=== PATIENT | female | born 1980 | race Caucasian/White ===

== ENCOUNTER 2016-03-09 15:24 | Emergency (ER) | payer OTHER ==
[~2016-03-09] VITALS: Ht 170.2 cm; Wt 108.9 kg
--- NOTE | 2016-03-09 16:17 | ED GI/GU/ABDOMINAL COMPLAINT ---
History of Present Illness General Chief Complaint: Abdominal Pain/Flank Pain Stated Complaint: ABD PAIN Source: patient Exam Limitations: no limitations Vital Signs & Intake/Output Vital Signs & Intake/Output Vital Signs Date Time Temp Pulse Resp B/P Pulse O2 O2 Flow FiO2 Ox Delivery Rate 03/09 1715 98.7 75 18 118/68 97 03/09 1528 97.8 98 20 135/83 98 Room Air Allergies Coded Allergies: No Known Allergies (03/09/16) Reconcile Medications Norethindrone-E.estradiol-Iron (Blisovi Fe 1-20 Tablet) 1 MG-20 MCG (21)/75 MG ( 7) TABLET 1 TAB PO DAILY CONTROL (Reported) Triage Note: TRIAGE: PT TO ER C/C LLQ ABD PAIN, ONSET 2 AM, INTERMITTENT INITIALLY BUT NOW CONSTANT SINCE 07:00. +N/-V/+D. LNBM ?FRIDAY. -URINARY S/S. REPORTS BLOOD IN STOOL (DIARRHEA) 30 MIN WALLPAPER CLEANER. BLOOD WAS BRIGHT RED IN COLOR, -CLOTS. REPORTS ALSO HAD COLD SWEATS WITH ONSET OF PAIN AT 02:00. Triage Nurses Notes Reviewed? yes ? n Is pt currently ? No HPI: 35-year-old female with sudden onset of diarrhea left lower quadrant pain that started at 2 AM this morning. She went to dinner last night, had steak and cramps, no Sick, she had sudden onset diarrhea multiple episodes and severe left lower quadrant abdominal pain. This eventually subsided and she was able to sleep through the night and woke up again at 7:30 with same symptoms, severe left lower quadrant abdominal pain which was nonradiating and diarrhea, large amount. She had mild nausea without vomiting. She had symptoms again a few hours ago and noted that she had a small amount of bright with blood in toilet after having a loose bowel movement again. This concerned her and she came in for evaluation. She has consistent 7 out of 10 left lower quadrant abdominal pain. No previous abdominal surgeries. No treatment thus far. No modifying factors. Symptoms have been intermittent, no bleeding when not going to the bathroom. No fever. Past History Travel History Traveled to [place] past 21 day No Medical History Any Pertinent Medical History? none Neurological: NONE EENT: NONE Cardiovascular: NONE Respiratory: NONE Gastrointestinal: NONE Hepatic: NONE Renal: NONE Musculoskeletal: NONE Psychiatric: NONE Endocrine: NONE Blood Disorders: NONE Cancer(s): NONE TEST ADMINISTRATOR/Reproductive: NONE Surgical History Surgical History: none Psychosocial History What is your primary language Irish Tobacco Use: Never used ETOH Use: occasional use Illicit Drug Use: denies illicit drug use Family History Hx Contributory? No Review of Systems Review of Systems Constitutional: Reports: see HPI. EENTM: Reports: no symptoms. Respiratory: Reports: no symptoms. Cardiovascular: Reports: no symptoms. GI: Reports: see HPI. Genitourinary: Reports: no symptoms. Musculoskeletal: Reports: no symptoms. Skin: Reports: no symptoms. Neurological/Psychological: Reports: no symptoms. Hematologic/Endocrine: Reports: no symptoms. Immunologic/Allergic: Reports: no symptoms. All Other Systems: Reviewed and Negative Physical Exam Physical Exam Gastrointestinal: normal bowel sounds, soft, non-tender, no organomegaly Comments: Well-developed well-nourished no apparent distress. HEENT: Atraumatic, extraocular motion intact Neck: Supple, no lymphadenopathy Back: Nontender Respiratory: No respiratory distress clear to auscultation bilateral. Heart: Regular rate and rhythm no murmur Extremities: No edema, full range of motion Neuro: Alert and oriented x3 Psych: Mood affect normal, normal memory normal judgment. Skin: Warm and dry, no rash on exposed skin Core Measures ACS in differential dx? No Severe Sepsis Present: No Septic Shock Present: No Progress Differential Diagnosis: AAA, AMI, appendicitis, biliary colic, bowel obstruction , colon cancer, cholecystitis, diverticulitis, ectopic , endometritis, esophageal varices, gastritis, hepatitis, hernia, hemorrhoids, ischemic bowel, inflamm bowel dis, intrauterine , kidney stone, Anika-Sven tear, ovarian cyst, ovarian torsion, pancreatitis, PID/cervicitis, peptic ulcer, PUD/ GERD, perforated viscous, SBO, threatened AB, UTI/pyelo Plan of Care: Orders Procedure Date/time Status Saline Lock 03/09 1614 Active URINE DRUG SCREEN FOR ER ONLY 03/09 1604 Complete URINALYSIS 03/09 1604 Complete LIPASE 03/09 1604 Complete HUMAN BETA HCG SCREEN 03/09 1604 Complete ETHANOL 03/09 1604 Complete COMPREHENSIVE METABOLIC PANEL 03/09 1604 Complete CBC WITHOUT DIFFERENTIAL 03/09 1604 Complete AMYLASE 03/09 1604 Complete Laboratory Tests 03/09/16 1909: Urine Opiates Screen < 100.00, Methadone Screen < 40, Barbiturate Screen < 60, Ur Phencyclidine Scrn < 6.00, Amphetamines Screen < 100, U Benzodiazepines Scrn < 85, Urine Cocaine Screen < 50, Urine Cannabis Screen < 5.00 03/09/16 1709: Urine Color YEL, Urine Clarity HAZY H, Urine pH 6.0, Ur Specific Cutler 1.025, Urine Protein TRACE H, Urine Ketones NEG, Urine Nitrite NEG, Urine Bilirubin NEG, Urine Urobilinogen 0.2, Ur Leukocyte Esterase SMALL H, Ur Microscopic SEDIMENT EXAMINED, Urine RBC 3-5, Urine WBC 3-5 H, Ur Epithelial Cells MANY H, Urine Hemoglobin NEG, Urine Glucose NEG 03/09/16 1628: Anion Gap 15, Estimated GFR > 60, BUN/Creatinine Ratio 15.0, Glucose 114 H, Calcium 9.8, Total Bilirubin 0.5, AST 19, ALT 27, Alkaline Phosphatase 64, Total Protein 7.9, Albumin 4.4, Globulin 3.5, Albumin/Globulin Ratio 1.3, Amylase 41, Lipase 135, Total Beta HCG NEGATIVE, CBC w Diff NO MAN DIFF REQ, RBC 4.82, MCV 89.8, MCH 30.6, RDW 12.6, MPV 11.5 H, Gran % 71.9, Lymphocytes % 20.9, Monocytes % 5.9, Eosinophils % 0.9, Basophils % 0.4, Absolute Granulocytes 8.2 H, Absolute Lymphocytes 2.4, Absolute Monocytes 0.7 H, Absolute Eosinophils 0.1 , Absolute Basophils 0, PUBS MCHC 34.0, Serum Alcohol < 10.0 Diagnostic Imaging: Viewed by Me: CT Scan. Discussed w/RAD: CT Scan. Radiology Impression: PATIENT: MARK RAMOS PRESENT AGE: 35 PATIENT ACCOUNT NO: [id number] : 80 LOCATION: [facility] ORDERING PHYSICIAN: PETRA SHEARER SERVICE DATE: 03/09/16 EXAM TYPE : CAT - CT ABD & PELVIS W IV CONTRAST EXAMINATION: CT ABDOMEN AND PELVIS WITH CONTRAST CLINICAL INFORMATION: Left lower quadrant pain. COMPARISON: None. TECHNIQUE: Multidetector volumetric imaging was performed of the abdomen and pelvis before and after the IV administration of 95 mL of Optiray 320 intravenous contrast. Sagittal and coronal reformatted images were obtained on the technologist's workstation. DLP: 1106 mGy-cm. FINDINGS: LUNG BASES: The visualized lung bases are unremarkable. LIVER, GALLBLADDER, AND BILIARY TREE: The liver is normal in size, shape, and attenuation. No focal hepatic lesion or biliary ductal dilatation is present. The gallbladder is unremarkable with no evidence of radiopaque gallstones, gallbladder wall thickening, or obvious pericholecystic inflammatory changes. PANCREAS: Unremarkable. SPLEEN: Unremarkable. ADRENAL GLANDS: Unremarkable. KIDNEYS AND URETERS: The kidneys are normal in size, shape, and attenuation. No hydronephrosis, hydroureter, or calculi seen. No perinephric stranding. BLADDER: Unremarkable. GASTROINTESTINAL TRACT: Bowel gas pattern is nonobstructive. No evidence of acute bowel inflammation. The appendix is normal. On coronal image 51/107, there is very subtle subcentimeter stranding in the fat along the antimesenteric surface of the sigmoid colon, which while nonspecific may reflect subtle epiploic appendagitis. ABDOMINAL WALL: No significant hernia is appreciated. LYMPH NODES: Subcentimeter mesenteric and retroperitoneal lymph nodes without pathologic enlargement. VASCULAR: Unremarkable. PELVIC VISCERA: No suspicious uterine or adnexal abnormality. No free pelvic fluid. OSSEOUS STRUCTURES: No acute osseous abnormalities. IMPRESSION: 1. Focal subtle stranding of fat along the antimesenteric surface of the sigmoid colon is most suspicious for epiploic appendagitis. 2. No acute bowel pathology demonstrated. DICTATED BY: DARRYL REGAN MD DATE/TIME DICTATED:03/09/161744 PERSONNEL SECURITY ASSISTANT:DENI DATE/TIME TRANSCRIBED:03/09/161744 Initial ED EKG: none Comments: Patient treated with Toradol 30 mg IV and IV fluids. We'll obtain CT scan labs. Upon reevaluation patient's feeling better, reviewed findings of CT with patient likely epiploic appendicitis, discussed with her this benign self-limiting condition and she is to return with worsening abdominal pain nausea vomiting or fever. She understands and agrees with plan. Departure Departure Disposition: HOME OR SELF CARE Condition: Stable Clinical Impression Primary Impression: Epiploic appendagitis Referrals: RAMAN FLOYD DO (PCP/Family) Additional Instructions: Motrin and Tylenol as needed for pain, drink clear fluids. Return to the ER with worsening abdominal pain, nausea, vomiting, fever Departure Forms: Customer Survey General Discharge Information
[2016-03-09 16:34] LABS: ABSOLUTE BASOPHIL COUNT 0 /CUMM (0.0-0.2); ABSOLUTE EOSINOPHIL COUNT 0.1 /CUMM (0.0-0.7); ABSOLUTE GRANULOCYTE CT 8.2 /CUMM (1.4-6.5); ABSOLUTE LYMPH COUNT 2.4 /CUMM (1.2-3.4); ABSOLUTE MONOCYTE COUNT 0.7 /CUMM (0.10-0.60); BASOPHIL % 0.4 % (0.0-2.0); EOSINOPHIL % 0.9 % (0-5); GRANULOCYTE % 71.9 % (42.2-75.2); HEMATOCRIT 43.3 % (37-47); MEAN CORPUSCULAR HGB 30.6 PG (27.0-31.0); MEAN CORPUSCULAR VOLUME 89.8 FL (81.0-99.0); MEAN PLATELET VOLUME 11.5 FL (7.4-10.4); PLATELET COUNT 235 /CUMM (130-400); RBC DISTRIBUTION WIDTH 12.6 % (11.5-14.5); RED BLOOD CELL CT 4.82 /CUMM (4.20-5.40); WHITE BLOOD CELL COUNT 11.5 /CUMM (4.8-10.8)
[2016-03-09] MEDS ORDERED: BLISOVI FE 1-21 EACH PO (17:12)
[2016-03-09 17:15] VITALS: BP 118/68
--- NOTE | 2016-03-09 17:56 | CT SCAN REPORT ---
EXAMINATION: CT ABDOMEN AND PELVIS WITH CONTRAST CLINICAL INFORMATION: Left lower quadrant pain. COMPARISON: None. TECHNIQUE: Multidetector volumetric imaging was performed of the abdomen and pelvis before and after the IV administration of 95 mL of Optiray 320 intravenous contrast. Sagittal and coronal reformatted images were obtained on the technologist's workstation. DLP: 1106 mGy-cm. FINDINGS: LUNG BASES: The visualized lung bases are unremarkable. LIVER, GALLBLADDER, AND BILIARY TREE: The liver is normal in size, shape, and attenuation. No focal hepatic lesion or biliary ductal dilatation is present. The gallbladder is unremarkable with no evidence of radiopaque gallstones, gallbladder wall thickening, or obvious pericholecystic inflammatory changes. PANCREAS: Unremarkable. SPLEEN: Unremarkable. ADRENAL GLANDS: Unremarkable. KIDNEYS AND URETERS: The kidneys are normal in size, shape, and attenuation. No hydronephrosis, hydroureter, or calculi seen. No perinephric stranding. BLADDER: Unremarkable. GASTROINTESTINAL TRACT: Bowel gas pattern is nonobstructive. No evidence of acute bowel inflammation. The appendix is normal. On coronal image 51/107, there is very subtle subcentimeter stranding in the fat along the antimesenteric surface of the sigmoid colon, which while nonspecific may reflect subtle epiploic appendagitis. ABDOMINAL WALL: No significant hernia is appreciated. LYMPH NODES: Subcentimeter mesenteric and retroperitoneal lymph nodes without pathologic enlargement. VASCULAR: Unremarkable. PELVIC VISCERA: No suspicious uterine or adnexal abnormality. No free pelvic fluid. OSSEOUS STRUCTURES: No acute osseous abnormalities. IMPRESSION: 1. Focal subtle stranding of fat along the antimesenteric surface of the sigmoid colon is most suspicious for epiploic appendagitis. 2. No acute bowel pathology demonstrated.
== END 2016-03-09 18:13 ==
LOC: ERH 15:24
PROVIDERS: Physician Assistant Surgical
DX: Q43.8 Other specified congenital malformations of intestine (principal)
CPT/HCPCS: 74177; 80307; 81001; 96374; G0480; J1885